=== PATIENT | female | born 1960 | race Caucasian/White ===

== ENCOUNTER 2018-09-11 06:07 | Day surgery (SDC) | payer OTHER ==
[2018-09-11] MEDS ORDERED: SUCCINYLCHOLINE CHLORIDE 100 MG/5 ML SYG IV (07:07)
[2018-09-11] MEDS ORDERED: LIDOCAINE 2% (SDV) 5 ML INJ (07:07)
[2018-09-11] MEDS ORDERED: EPHEDrine 25 MG/5 ML SYG (07:07)
[2018-09-11] MEDS ORDERED: PROPOFOL 40 ML (07:07)
[2018-09-11] MEDS ORDERED: GLYCOPYRROLATE 0.4 MG INJ (07:44)
== END 2018-09-11 11:58 | disposition home or self-care (01) ==
LOC: GIL 06:07
DX: K92.1 Melena (principal); K64.8 Other hemorrhoids; D12.7 Benign neoplasm of rectosigmoid junction
CPT/HCPCS: 45380